=== PATIENT | female | born 1980 | race African-American/Black ===

== ENCOUNTER 2017-02-02 20:57 | Emergency (ER) | payer MEDICAID ==
[2017-02-02 23:23] LABS: BASOPHILS 0.2 % (0.0-2.0); EOSINOPHILS 0.6 % (0-7); HEMOGLOBIN 11.7 g/dL (12-16); IMMATURE GRANULOCYTES 0.2 % (0-5); LYMPHOCYTES 35.9 % (15-50); MCH 26.1 pg (26.0-34.0); MCHC 32.5 g/dL (31.0-37.0); MCV 80.2 fL (80.0-100.0); MEAN PLATELET VOLUME 10.5 fL (7.4-10.4); MONOCYTES 5.8 % (2-11); NEUTROPHILS 57.3 % (40-80); PLATELET COUNT 195 10x3/uL (130-400); RBC 4.49 10x6/uL (4.00-5.40); RDW 14.3 % (11.5-14.5); WBC 9.1 10x3/uL (4.8-10.8)
[2017-02-02 23:39] LABS: ALBUMIN 3.1 g/dL (3.4-5.0); ALKALINE PHOSPHATASE 66 U/L (46-116); ALT (SGPT) 23 U/L (10-68); BILIRUBIN - TOTAL 0.17 mg/dL (0.2-1.3); CALC OSMOLALITY 281 mosm/kg (275-300); CALCIUM 8.9 mg/dL (8.5-10.1); CARBON DIOXIDE 30.9 mmol/L (21.0-32.0); CHLORIDE - SERUM 105 mmol/L (98-107); CREATININE - SERUM 1.4 mg/dL (0.6-1.3); GLUCOSE 83 mg/dL (74-106); POTASSIUM - SERUM 3.5 mmol/L (3.5-5.1); PROTEIN - SERUM 7.3 g/dL (6.4-8.2); SODIUM 141 mmol/L (136-145); UREA NITROGEN 18 mg/dL (7-18); eGFR NON AFRICAN AMERICAN 45 mL/min (90-120)
[2017-02-02 23:42] LABS: CREATINE KINASE 131 UL (21-215)
[2017-02-02 23:46] LABS: TROPONIN-I < 0.017 ng/mL (0.000-0.060)
== END 2017-02-03 00:30 | disposition home or self-care (01) ==
LOC: D.ER 20:57
PROVIDERS: Emergency Medicine
DX: M94.0 Chondrocostal junction syndrome [Tietze] (principal); F41.9 Anxiety disorder, unspecified

== ENCOUNTER → 2017-03-05 16:26 | Outpatient (CLI) | payer MEDICAID | END | disposition home or self-care (01) | LOC: D.MRI 16:26 | DX: M54.16 Radiculopathy, lumbar region (principal) ==

== ENCOUNTER 2018-02-16 07:19 | Emergency (ER) | payer SELFPAY ==
[2018-02-16 07:51] LABS: HCG URINE NEGATIVE (NEGATIVE)
[2018-02-16 07:53] LABS: APPEARANCE HAZY (CLEAR); COLOR YELLOW (YELLOW); SPECIFIC GRAVITY 1.025 (1.005-1.020)
[2018-02-16 07:56] LABS: BACTERIA MODERATE /hpf (NONE SEEN); BILIRUBIN NEGATIVE (NEGATIVE); GLUCOSE NEGATIVE (NEGATIVE); KETONE NEGATIVE (NEGATIVE); MUCUS >1+ /lpf (NONE SEEN); NITRITE NEGATIVE (NEGATIVE); PROTEIN NEGATIVE (NEGATIVE); RED CELLS - URINE 0-5 /hpf (0-5); UROBILINOGEN NORMAL (NORMAL); WHITE CELLS - URINE 0-5 /hpf (0-5)
== END 2018-02-16 08:35 | disposition home or self-care (01) ==
LOC: D.ER 07:19
PROVIDERS: Emergency Medicine
DX: N20.1 Calculus of ureter (principal)

== ENCOUNTER 2019-03-18 19:46 | Emergency (ER) | payer SELFPAY ==
[~2019-03-18] VITALS: Ht 170.2 cm; Wt 107.7 kg
[2019-03-18 19:56] VITALS: Ht 170.2 cm; Wt 107.7 kg
[2019-03-18] MEDS ORDERED: ADIPEX-P37.5 MG (19:58)
[2019-03-18] MEDS ORDERED: ZANAFLEX4 MG (19:58)
[2019-03-18] MEDS ORDERED: HYDROCODON-ACE1 EAC2 (19:58)
[2019-03-18] MEDS ORDERED: FUROSEMIDE20 MG (19:58)
[2019-03-18 20:40] LABS: BASOPHILS 0.2 % (0-2); EOSINOPHILS 0.5 % (0-7); HEMATOCRIT 36.4 % (36.0-48.0); HEMOGLOBIN 12.3 g/dL (12-16); IMMATURE GRANULOCYTES 0.2 % (0-5); LYMPHOCYTES 46.7 % (15-50); MCH 26.3 pg (26.0-34.0); MCHC 33.8 g/dL (31.0-37.0); MCV 77.8 fL (80.0-100.0); MEAN PLATELET VOLUME 10.4 fL (7.4-10.4); MONOCYTES 6.1 % (2-11); NEUTROPHILS 46.3 % (40-80); PLATELET COUNT 194 10x3/uL (130-400); RBC 4.68 10x6/uL (4.00-5.40); WBC 10.2 10x3/uL (4.8-10.8)
[2019-03-18 20:53] LABS: ALBUMIN 3.4 g/dL (3.4-5.0); ALKALINE PHOSPHATASE 74 U/L (46-116); ALT (SGPT) 25 U/L (10-68); BILIRUBIN - TOTAL 0.17 mg/dL (0.2-1.3); CALC OSMOLALITY 277 mosm/kg (275-300); CARBON DIOXIDE 25.3 mmol/L (21.0-32.0); CHLORIDE - SERUM 106 mmol/L (98-107); GLUCOSE 103 mg/dL (74-106); POTASSIUM - SERUM 3.1 mmol/L (3.5-5.1); SODIUM 139 mmol/L (136-145); UREA NITROGEN 13 mg/dL (7-18); eGFR NON AFRICAN AMERICAN 65 mL/min (90-120)
[2019-03-18 21:05] LABS: CKMB 0.3 U/L (0.0-3.6); CREATINE KINASE 102 UL (21-215); MAGNESIUM - SERUM 2.1 mg/dL (1.8-2.4); TROPONIN-I < 0.017 ng/mL (0.000-0.060)
[2019-03-18 21:07] LABS: APTT 24.5 SECONDS (22.8-39.4); INR 1.01 (0.85-1.17); PROTIME 12.8 SECONDS (11.6-15.0)
[2019-03-18] MEDS ORDERED: VISTARIL50 MG PO (21:54)
[2019-03-18 22:00] VITALS: BP 139/77
== END 2019-03-18 22:00 | disposition home or self-care (01) ==
LOC: D.ER 19:46
PROVIDERS: Family Medicine
DX: F41.9 Anxiety disorder, unspecified (principal)